=== PATIENT | male | born 1940 | race Caucasian/White ===

== ENCOUNTER 2019-04-29 14:26 | Emergency (ER) | payer OTHER ==
[~2019-04-29] VITALS: Ht 188 cm; Wt 83.2 kg
[2019-04-29 14:40] VITALS: Ht 188 cm; Wt 83.2 kg
[2019-04-29] MEDS ORDERED: AMIODARONE HCL200 MG PO (14:43)
[2019-04-29] MEDS ORDERED: COREG25 MG PO (14:43)
[2019-04-29] MEDS ORDERED: LIPITOR40 MG PO (14:43)
[2019-04-29] MEDS ORDERED: ELIQUIS5 MG PO (14:43)
[2019-04-29] MEDS ORDERED: FUROSEMIDE40 MG PO (14:44)
[2019-04-29] MEDS ORDERED: KEFLEX500 MG PO (14:44)
[2019-04-29] MEDS ORDERED: LASIX20 MG PO (14:44)
[2019-04-29] MEDS ORDERED: GLUCOPHAGE500 MG PO (14:45)
[2019-04-29] MEDS ORDERED: BAYER CHEWABLE81 MG PO (14:45)
[2019-04-29] MEDS ORDERED: PROBIOTIC1 EAC1 PO (14:45)
[2019-04-29] MEDS ORDERED: LISINOPRIL40 MG PO (14:45)
[2019-04-29] MEDS ORDERED: ACETAMINOPHEN500 M1 PO (14:45)
[2019-04-29 16:07] LABS: BASOPHILS 0.1 % (0-2); EOSINOPHILS 0.4 % (0-7); HEMATOCRIT 33.2 % (42.0-54.0); HEMOGLOBIN 11.2 g/dL (13.5-17.5); IMMATURE GRANULOCYTES 0.2 % (0-5); LYMPHOCYTES 7.5 % (15-50); MCH 31.5 pg (26.0-34.0); MCHC 33.7 g/dL (31.0-37.0); MCV 93.3 fL (80.0-100.0); MEAN PLATELET VOLUME 10.7 fL (7.4-10.4); MONOCYTES 8.7 % (2-11); NEUTROPHILS 83.1 % (40-80); PLATELET COUNT 123 10x3/uL (130-400); RBC 3.56 10x6/uL (4.20-6.10); RDW 13.7 % (11.5-14.5); WBC 14.3 10x3/uL (4.8-10.8)
[2019-04-29 16:20] LABS: ALBUMIN 3.2 g/dL (3.4-5.0); ANION GAP 14.4 mmol/L (8-16); BILIRUBIN - TOTAL 0.55 mg/dL (0.2-1.3); CARBON DIOXIDE 26.1 mmol/L (21.0-32.0); CREATININE - SERUM 1.1 mg/dL (0.6-1.3); POTASSIUM - SERUM 4.5 mmol/L (3.5-5.1); PROTEIN - SERUM 7.2 g/dL (6.4-8.2)
[2019-04-29 16:48] LABS: APPEARANCE CLEAR (CLEAR); BILIRUBIN NEGATIVE (NEGATIVE); COLOR YELLOW (YELLOW); GLUCOSE 50 mg/dL (NEGATIVE); KETONE NEGATIVE (NEGATIVE); NITRITE NEGATIVE (NEGATIVE); PROTEIN TRACE mg/dL (NEGATIVE); SPECIFIC GRAVITY 1.015 (1.005-1.020); UROBILINOGEN NORMAL (NORMAL)
[2019-04-29 21:59] VITALS: BP 174/73
== END 2019-04-29 22:05 | disposition other institution (70) ==
LOC: D.ER 14:26
PROVIDERS: Family Medicine
DX: J18.1 Lobar pneumonia, unspecified organism (principal); E86.0 Dehydration; E11.9 Type 2 diabetes mellitus without complications; I10 Essential (primary) hypertension; I48.91 Unspecified atrial fibrillation